=== PATIENT | female | born 1985 | race Caucasian/White ===

== ENCOUNTER → 2019-04-09 | Outpatient (CLI) | payer BC, OTHER ==
[~2019-04-09] MED LIST: A.E.R PADS1 JAR; DERMOPLAST SPRA56 ML; IBUPROFEN 400400 M1 PO; IBUPROFEN200 M2 PO; LANOLIN56 GM TOP; NORCO 5-325 TA1 EACH PO; PRENATAL PO
== END ==
LOC: ULTRA 16:53
DX: O20.9 Hemorrhage in early pregnancy, unspecified (principal); Z3A.12 12 weeks gestation of pregnancy